=== PATIENT | female | born 1980 | race Caucasian/White ===

== ENCOUNTER 2020-09-11 11:52 | Emergency (ER) | payer MEDICAID ==
[~2020-09-11] VITALS: Ht 160 cm; Wt 65.1 kg
[2020-09-11] MEDS ORDERED: SODIUM CHLORIDE FLUSH 10ML SYR IVF ONE (12:30)
[2020-09-11] MEDS ORDERED: HYDROmorphone 2 MG/ML, 1ML IVPush ONE (12:30)
[2020-09-11] MEDS ORDERED: DIPH,PERTUSS(ACELL),TET VAC/PF 0.5 ML IM-VACC ONE ×2 (12:30→12:33)
[2020-09-11] MEDS ORDERED: ONDANSETRON 2MG/ML, 2ML IVPush ONE (12:30)
[2020-09-11] MEDS ORDERED: ONDANSETRON 2MG/ML, 2ML ONE (12:32)
[2020-09-11] MEDS ORDERED: HYDROmorphone 1 MG/ML, 1ML INJ ONE (12:32)
[2020-09-11] MEDS ORDERED: KETAMINE 10 MG/ML, 20ML IV ONE ×2 (12:38→13:51)
[2020-09-11] MEDS ORDERED: KETOROLAC 30 MG/1 ML ONE (12:51)
[2020-09-11] MEDS ORDERED: KETAMINE 10 MG/ML, 20ML ONE (12:57)
[2020-09-11] MEDS ORDERED: LIDOCAINE 1%, 10ML INFIL ONE (13:00)
[2020-09-11] MEDS ORDERED: LIDOCAINE-MPF 1%, 5ML ONE (13:02)
[2020-09-11] MEDS ORDERED: PROPOFOL 10 MG/ML, 20ML ONE (13:07)
--- NOTE | 2020-09-11 13:27 | NUR ---
procedure done with dr davis and tr daigle, and x2 edt. see paperwork.
[2020-09-11] MEDS ORDERED: PROPOFOL 10 MG/ML, 20ML IVPush ONE (13:30)
[2020-09-11] MEDS ORDERED: CEPHALEXIN 500 MG CAPSULE PO ONE (13:30)
[2020-09-11 13:31] VITALS: BP 113/85
[2020-09-11] MEDS ORDERED: CEPHALEXIN 500 MG CAPSULE ONE (13:37)
--- NOTE | 2020-09-11 13:57 | NUR ---
ASSUMED CARE OF PATIENT AT THIS TIME FROM BEREKET KAY. PT RESTING IN [facility] AT THIS TIME, AMEE.
== END 2020-09-11 14:05 | disposition home or self-care (01) ==
LOC: ED 13:30
DX: M79.642 Pain in left hand (principal); Z48.02 Encounter for removal of sutures
CPT/HCPCS: 73130; 90471; 90715; 96374; 96375; 99285; J1170; J2405; J2704

== ENCOUNTER 2021-02-11 08:37 | Emergency (ER) | payer MEDICAID ==
[~2021-02-11] VITALS: Ht 154.9 cm; Wt 64.9 kg
--- NOTE | 2021-02-11 09:49 | NUR ---
pt presents to ed with c/o R upper and lower abd pain x2 weeks. pt has hx of hepatitis. pt a&o, resps even and unlabored, vss, nadn.
--- NOTE | 2021-02-11 09:52 | NUR ---
REPORT FROM BEREKET DUENAS. ASSUMED CARE
[2021-02-11 10:26] LABS: MICROSCOPIC NOT IND
[2021-02-11 10:45] LABS: BASOPHILS % (AUTO) 1 % (0-1); EOSINOPHILS % (AUTO) 1 % (1-7); LYMPHOCYTES % (AUTO) 40 % (22-44); MEAN CORPUSCULAR HEMOGLOBIN 30.1 pg (27.0-34.8); MEAN CORPUSCULAR HGB CONC 33.8 g/dL (32.4-35.8); MEAN PLATELET VOLUME 7.4 fL (7.4-10.4); MONOCYTES % (AUTO) 6 % (2-9); NEUTROPHILS % (AUTO) 52 % (42-75); PLATELET COUNT 265 x10^3/uL (130-400); RED BLOOD COUNT 4.33 x10^6/uL (3.82-5.3); RED CELL DISTRIBUTION WIDTH 13.2 % (9.6-15.2)
--- NOTE | 2021-02-11 10:48 | NUR ---
PT RESTING IN [facility]. NAD. TOPETE PROVIDED
[2021-02-11 10:55] LABS: ALANINE AMINOTRANSFERASE 13 U/L (12-78); ALBUMIN 3.3 g/dL (3.4-5.0); ANION GAP 3 mmol/L (5-15); CALCIUM 8.8 mg/dL (8.5-10.1); CHLORIDE 110 mmol/L (98-107)
[2021-02-11 11:00] LABS: ALKALINE PHOSPHATASE 68 U/L (45-117); BILIRUBIN,TOTAL 0.3 mg/dL (0.2-1.0); CREATININE 0.38 mg/dL (0.55-1.02); TOTAL PROTEIN 6.9 g/dL (6.4-8.2)
[2021-02-11 12:18] VITALS: BP 103/60
== END 2021-02-11 14:52 | disposition home or self-care (01) ==
LOC: ED 10:10
DX: G89.29 Other chronic pain (principal); R10.11 Right upper quadrant pain; L03.115 Cellulitis of right lower limb; F17.210 Nicotine dependence, cigarettes, uncomplicated
CPT/HCPCS: 36415; 76700; 80053; 81003; 83690; 84703; 85025; 99284